=== PATIENT | male | born 2000 | race Caucasian/White ===

== ENCOUNTER 2021-12-13 20:04 | Emergency (ER) | payer MEDICAID, OTHER ==
[~2021-12-13] VITALS: Ht 182.9 cm; Wt 113.4 kg
[2021-12-14] MEDS ORDERED: HYDROcodone-ACET 10/325MG TAB PO ONE (01:15)
[2021-12-14 02:38] VITALS: BP 155/104
== END 2021-12-14 03:30 | disposition home or self-care (01) ==
LOC: ER 20:10
DX: S63.284A Dislocation of proximal interphalangeal joint of right ring finger, initial encounter (principal); Z88.0 Allergy status to penicillin; W18.39XA Other fall on same level, initial encounter; Y93.89 Activity, other specified; Y92.89 Other specified places as the place of occurrence of the external cause; Y99.8 Other external cause status
CPT/HCPCS: 26670; 73130